=== PATIENT | male | born 1990 | race Two or more races ===

== ENCOUNTER 2024-02-11 16:07 | Emergency (ER) | payer OTHER ==
[~2024-02-11] VITALS: Ht 177.8 cm; Wt 80.7 kg
[~2024-02-11 16:07] MED LIST: ALBUTEROL2.5 MG/3 M IH; CIPRO500 MG PO; CIPROFLOXA500 MG/5 M PO; NASONEX 24HR AL17 ML NASAL; PROVENTIL HFA6.7 GM IH; SINGULAIR10 MG PO
[2024-02-11] MEDS ORDERED: COZAAR25 MG PO (16:37)
[2024-02-11] MEDS ORDERED: ENALAPRILAT DIHYDRATE 1.25 MG/ML VIAL IV ONE ×2 (17:15→18:23)
[2024-02-11 18:55] LABS: HEMATOCRIT 48.7 % (39.0-48.0); HEMOGLOBIN 16.3 g/dL (13-16.00); MEAN CELL VOLUME 78.8 fL (80.0-100.00); MEAN CORPUSCULAR HEMOGLOBIN 26.5 pg (27.00-32.0); MEAN CORPUSCULAR HGB CONC 33.6 g/dl (32.0-36.0); PLATELET COUNT 294 K/uL (150-450); RED BLOOD COUNT 6.17 M/uL (4.00-6.00); RED CELL DISTRIBUTION WIDTH 13.8 % (11.5-14.5)
== END 2024-02-11 19:57 | disposition home or self-care (01) ==
LOC: ER 16:10
PROVIDERS: General Practice
DX: R53.1 Weakness (principal); I10 Essential (primary) hypertension; Z20.822 Contact with and (suspected) exposure to COVID-19